=== PATIENT | female | born 1940 | race Caucasian/White ===

== ENCOUNTER 2020-11-04 11:18 | Day surgery (SDC) | payer MEDICAID ==
[~2020-11-04] VITALS: Ht 157.5 cm; Wt 63.6 kg
[~2020-11-04 11:18] MED LIST: SODIUM CHLORIDE 0.9% 1,000 ML IV ONE
[2020-11-04] MEDS ORDERED: PROPOFOL 1% 20 ML VIAL IVP ONE (11:19)
[2020-11-04 12:03] LABS: GLUCOMETER DEV NAME(LOC) SDS.; GLUCOSE,POINT OF CARE 81 MG/DL (70-110)
== END 2020-11-04 13:28 | disposition home or self-care (01) ==
LOC: SURGERY 11:18
PROVIDERS: ATTEND Internal Medicine Gastroenterology
DX: K62.5 Hemorrhage of anus and rectum (principal); K63.5 Polyp of colon; D12.8 Benign neoplasm of rectum; Z88.8 Allergy status to other drugs, medicaments and biological substances; K59.00 Constipation, unspecified; K62.89 Other specified diseases of anus and rectum; Z79.899 Other long term (current) drug therapy; Z98.890 Other specified postprocedural states
CPT/HCPCS: 45380; 45385; 82962; 88305; C1769; J2704

== ENCOUNTER 2021-05-29 11:29 | Day surgery (SDC) | payer OTHER ==
[2021-05-28 11:55] LABS: COVID AG,FIA SOURCE NASOPHARYNGEAL
[~2021-05-29] VITALS: Ht 160 cm; Wt 64.5 kg
[~2021-05-29 11:29] MED LIST changes: -SODIUM CHLORIDE 0.9% 1,000 ML IV ONE; +SODIUM CHLORIDE 0.9% 1,000 ML ONE
[2021-05-29] MEDS ORDERED: PROPOFOL 1% 20 ML VIAL IVP ONE (11:30)
[2021-05-29] MEDS ORDERED: SODIUM CHLORIDE 0.9% 1,000 ML IV ONE (11:30)
[2021-05-29] MEDS ORDERED: PLEC3TAB2 PO (12:30)
[2021-05-29] MEDS ORDERED: GABA-1181 PO (12:30)
== END 2021-05-29 16:00 | disposition home or self-care (01) ==
LOC: SURGERY 11:29
PROVIDERS: ATTEND Internal Medicine Gastroenterology
DX: K59.00 Constipation, unspecified (principal); D12.8 Benign neoplasm of rectum; G47.00 Insomnia, unspecified; Z98.890 Other specified postprocedural states; Z90.710 Acquired absence of both cervix and uterus; Z79.899 Other long term (current) drug therapy
CPT/HCPCS: 45338; 87426; 88305; C1769; C9803; J2704; J7030